=== PATIENT | male | born 1995 ===

== ENCOUNTER 2018-10-02 18:58 | Emergency (ER) | payer SELFPAY ==
[2018-10-02 19:03] VITALS: BP 129/81; PULSE 70; RESP 18; TEMP 98.1; O2SAT 95
--- NOTE | 2018-10-02 19:59 | C.PDOC ---
History Of Present Illness 23 year old male presents to the ER with a complaint of back pain since yesterday. Patient describes the pain as soreness and states it worsens with bending. Denies cough, cp, SOB, URI symptoms, dysuria, hematuria, weakness, or numbness. Time Seen by Provider: 10/02/18 19:19 History Per: Patient History/Exam Limitations: no limitations Onset/Duration Of Symptoms: Days (Yesterday) Current Symptoms Are (Timing): Still Present Quality Of Discomfort: Other (Soreness) Associated Symptoms: None Exacerbating Factor(s): Other (Bending) Recent travel outside of the [place]: No Past Medical History Reviewed: Historical Data, Nursing Documentation, Vital Signs Vital Signs: Last Vital Signs Temp 98.1 F 10/02/18 19:01 Pulse 70 10/02/18 19:01 Resp 18 10/02/18 19:01 BP 129/81 10/02/18 19:01 Pulse Ox 95 10/02/18 19:01 Family History: States: No Known Family Hx - Social History Hx Alcohol Use: No Hx Substance Use: No - Immunization History Hx Tetanus Toxoid Vaccination: No Hx Influenza Vaccination: No Hx Pneumococcal Vaccination: No Review Of Systems ENT: Negative for: Nose Discharge, Nose Congestion, Throat Pain Respiratory: Negative for: Cough Genitourinary: Negative for: Dysuria, Incontinence, Hematuria Musculoskeletal: Positive for: Back Pain Neurological: Negative for: Weakness, Numbness Physical Exam - Physical Exam Appears: Non-toxic, No Acute Distress Skin: Normal Color, Warm, Dry Head: Atraumatic, Normacephalic Eye(s): bilateral: Normal Inspection Oral Mucosa: Moist Neck: Normal, Supple Chest: Symmetrical, No Tenderness Cardiovascular: Rhythm Regular Respiratory: Normal Breath Sounds, No Rales, No Rhonchi, No Wheezing Gastrointestinal/Abdominal: Soft, No Tenderness Back: No Vertebral Tenderness, Paraspinal Tenderness (MINIMAL SUBSCAPULAR B/L, PARALUMBAR, (-) CVA tenderness) Extremity: Normal ROM (x4) Neurological/Psych: Oriented x3, Normal Speech, Normal Motor, Normal Sensation Gait: Steady ED Course And Treatment O2 Sat by Pulse Oximetry: 95 (Room air) Pulse Ox Interpretation: Normal Progress Note: Motrin administered. Patient is resting comfortably in the ER in no acute distress, vitals are stable, will discharge home with Rx and instructions to follow up with PMD. Disposition Counseled Patient/Family Regarding: Diagnosis, Need For Followup, Rx Given - Disposition Referrals: [facility] [Outside] Disposition: HOME/ ROUTINE Disposition Time: 19:56 Condition: STABLE Additional Instructions: Please follow up with PMD Take medications as directed Return to ER if worse Prescriptions: Cyclobenzaprine [Cyclobenzaprine HCl] 10 mg PO DAILY #10 tab Ibuprofen [Motrin] 600 mg PO Q6H #30 tab Instructions: Muscle Strain (DC) Forms: [employer] (Kazakh) Print Language: TURKMEN - Clinical Impression Clinical Impression: Back pain, Muscle strain - PA / WEBSITE ADMIN / Resident Statement MD/DO has reviewed & agrees with the documentation as recorded. - Scribe Statement The provider has reviewed the documentation as recorded by the Scribamparo Mascorro All medical record entries made by the Rachel were at my direction and personally dictated by me. I have reviewed the chart and agree that the record accurately reflects my personal performance of the history, physical exam, medical decision making, and the department course for this patient. I have also personally directed, reviewed, and agree with the discharge instructions and disposition.
== END 2018-10-02 20:04 | disposition home or self-care (01) ==
LOC: C.ER 18:58
DX: S39.012A Strain of muscle, fascia and tendon of lower back, initial encounter (principal); X58.XXXA Exposure to other specified factors, initial encounter